=== PATIENT | female | born 1975 | race Caucasian/White ===

== ENCOUNTER 2018-09-14 22:14 | Inpatient (IN) | payer OTHER ==
[~2018-09-14] VITALS: Ht 162.6 cm; Wt 68.5 kg
[2018-09-14 22:18] VITALS: Ht 162.6 cm; Wt 68.5 kg
[2018-09-14 22:44] LABS: BASOPHIL % 0.1 % (0-2); PLATELET COUNT 200 x10^3mcL (130-400); RED CELL DISTRIBUTION WIDTH 13.8 % (11.5-14.5)
[2018-09-14 23:04] LABS: CARBON DIOXIDE 22.6 mmol/L (21-32); CHLORIDE SERUM 105 mmol/L (98-107); CREATININE SERUM 0.5 mg/dL (0.6-1.0); GFR1 > 60 mL/min; GLUCOSE SERUM 118 mg/dL (74-106); POTASSIUM SERUM 3.7 mmol/L (3.5-5.1); SODIUM SERUM 139 mmol/L (136-145)
[2018-09-14 23:09] LABS: ALBUMIN 3.5 g/dL (3.4-5.0); ALKALINE PHOSPHATASE 168 U/L (46-116); ALT/SGPT 66 U/L (14-59); AST/SGOT 34 U/L (15-37); BILIRUBIN TOTAL 0.46 mg/dL (0.20-1.00); LIPASE 112 IU/L (73-393); TOTAL PROTEIN, SERUM 7.5 g/dL (6.4-8.2)
--- NOTE | 2018-09-14 23:33 | NUR ---
PT PRESENTS TO ER TODAY WITH C/O OF GENERALIZED ABD PAIN THAT STARTED THIS MORNING AT APPROX 0300. PT STATES THAT PAIN FEELS SHARP AND RATES IT A 10/10. PT ALSO REPORTING NAUSEA AND VOMITING X4 TODAY. PT DENIES ANY DIARRHEA OR FEVER. PT REPORTS GOING TO URGENT CARE TODAY AND WAS PRESCRIBED CIRPOFLOXACIN THAT SHE TOOK ONE DOSE OF TODAY. PT REPORTS PAIN WAS NOT GETTING ANY BETTER AND DECIDED TO COME TO ER TODAY FOR FURTHER EVALUATION. PT ALSO REPORTING OLIGURAI BUT DENIES ANY DYSURIA OR HEMATURIA. PT IS A/O X4. RESP ARE EQUAL AND UNLABORED. MILD DISTRESS NOTED. MOTHER AT BEDSIDE.
--- NOTE | 2018-09-15 01:50 | NUR ---
PT RESTING IN BED RUBBING HER ABD COMPLAINING OF 7/10 PAIN IN HER ABDOMEN. PT STATES TACHY AT 121 AND HYPERTENSIVE AT 171/71. MILD DISTRESS NOTED. MD HILL MADE AWARE.
--- NOTE | 2018-09-15 02:19 | NUR ---
REPORT GIVEN TO SENTHIL MORIN TO ASSUME CARE OF PT.
[2018-09-15 02:42] LABS: CHOLESTEROL/HDL RATIO 1.9
[2018-09-15 02:52] LABS: T3 TOTAL > 8.00 ng/mL
[2018-09-15 03:33] LABS: FREE T4 10.74 ng/dL (0.76-1.46); FREE THYROXINE INDEX 19.8 ug/dL (1.4-4.5); T4(THYROXINE) 34.2 ug/dL (4.7-13.3)
[2018-09-15 03:42] VITALS: BP 190/94
--- NOTE | 2018-09-15 03:56 | NUR ---
PATIENT ADMITTED TO UNIT VIA WHEELCHAIR ACCOMPANIED BY MOTHER. PATIENT ADMITTED FOR ABDOMINAL PAIN RADIATING TO LOWER BACK DESCRIBED CRAMPING AND BLOATING STARTED TODAY. HYPOACTIVE BOWEL SOUNDS X4. ABDOMEN SOFT AND ROUND. PATIENT STATED THAT SHE HAD A X1 WATERY LOOSE STOOL YESTERDAY. IV TO LAC, CONNECTED TO IV FLUIDS PER MD ORDERS AND REORIENTED TO ENVIRONMENT. CALL LIGHT PLACED IN REACH.
[2018-09-15 06:15] VITALS: BP 159/79
[2018-09-15 06:29] LABS: BASOPHIL % 0.2 % (0-2); PLATELET COUNT 178 x10^3mcL (130-400); RED CELL DISTRIBUTION WIDTH 13.9 % (11.5-14.5)
[2018-09-15 06:41] LABS: CALCIUM 8.6 mg/dL (8.5-10.1); CARBON DIOXIDE 22.9 mmol/L (21-32); CHLORIDE SERUM 104 mmol/L (98-107); CREATININE SERUM 0.4 mg/dL (0.6-1.0); GFR1 > 60 mL/min; GLUCOSE SERUM 92 mg/dL (74-106); MAGNESIUM 1.5 mg/dL (1.8-2.4); PHOSPHOROUS 3.8 mg/dL (2.5-4.9); POTASSIUM SERUM 3.8 mmol/L (3.5-5.1); SODIUM SERUM 139 mmol/L (136-145)
--- NOTE | 2018-09-15 07:30 | NUR ---
PT IS AAOX4. NORMAL S1S2 NOTED. RESP EVEN AND UNLABORED. ON R/A. ABDOMEN SOFT, TENDER, NONDISTENDED. BOWEL SOUNDS ACTIVE. SKIN CDI. NO EDEMA NOTED. IV CATH TO LFA PATENT WITH NO S/S OF INFECTION NOTED. DENIES PAIN AT THIS TIME. CALL LIGHT WITHIN REACH. BED IN LOWEST POSTION.
[2018-09-15 09:00] VITALS: BP 130/61
--- NOTE | 2018-09-15 09:40 | NUR ---
DUE MEDS GIVEN. PT DENIES ABDOMINAL PAIN AT THIS TIME. RESP EVEN AND UNLABORED. NO DISTRESS NOTED. PT'S MOTHER AT BEDSIDE. PT INFORMED DIET HAS BEEN CHANGE TO FULL LIQUID AND WILL CX TO NPO AFTER MIDNIGHT. PT VERBALIZED UNDERSTANDING. CALL LIGHT WITHIN REACH.
--- NOTE | 2018-09-15 10:51 | NUR ---
REPORTED TO DR. MENDES, PT'S MAG LEVEL IS 1.5. NO NEW ORDERS AT THIS TIME.
--- NOTE | 2018-09-15 13:45 | NUR ---
NORCO PO GIVEN FOR ABDOMINAL PAIN. PT TURNED AND REPOSITIONED FOR COMFORT. FLUIDS ENCOURAGED. CALL LIGHT WITHIN REACH.
[2018-09-15 14:50] LABS: UA SPECIFIC GRAVITY >=1.030 (1.005-1.035); microscopic required? YES; urine erythrocyte 1+ (NEGATIVE)
[2018-09-15 15:11] LABS: AMPHETAMINE QUAL UR NONE DETECTED (See below)
[2018-09-15 17:00] VITALS: BP 148/77
--- NOTE | 2018-09-15 18:59 | NUR ---
PT IS AAOX4. RESP EVEN AND UNLABORED. DENIES PAIN OR DISCOMFORT. IV CATH TO LFA PATENT WITH NO S/S OF INFECTION NOTED. CALL LIGHT WITHIN REACH. BED IN LOW POSITION. WILL ENDORSE ALL CARE TO NOC RN.
--- NOTE | 2018-09-15 20:20 | NUR ---
PT RECIEVED AAO REG RESP NO SOB V/S STABLE,KEPT CLEAN AND DRY TO TOUCH,PT HAS HL TO THE LT AC SITE SWOLLEN WILL STAY A NEW HL.REG RESP NO SOB V/S STABLE.KEPT CLEAN AND DRY TO TOUCH,PT WITH C/O OF ABDO PAIN DRAMPING IN NATURE AT THE SCALE OF 5/10,PT HAD A EPISODE OF VOMITING MODERATE YELLOW PER PATIENT,BED IN THE LOW POSITION AND LOCKED AND WILL CONTINUE TO MONITOR.
[2018-09-15 22:16] VITALS: BP 142/75
--- NOTE | 2018-09-16 01:55 | NUR ---
PT SLEEPING SOUNDLY AND WILL CONTINUE TO MONITOR.
[2018-09-16 05:41] VITALS: BP 130/64
[2018-09-16 06:16] LABS: BASOPHIL % 0.2 % (0-2); PLATELET COUNT 163 x10^3mcL (130-400); RED CELL DISTRIBUTION WIDTH 14.3 % (11.5-14.5)
[2018-09-16 06:35] LABS: CALCIUM 8.6 mg/dL (8.5-10.1); CARBON DIOXIDE 23.5 mmol/L (21-32); CHLORIDE SERUM 106 mmol/L (98-107); CREATININE SERUM 0.3 mg/dL (0.6-1.0); GFR1 > 60 mL/min; GLUCOSE SERUM 105 mg/dL (74-106); MAGNESIUM 1.6 mg/dL (1.8-2.4); PHOSPHOROUS 3.3 mg/dL (2.5-4.9); POTASSIUM SERUM 3.5 mmol/L (3.5-5.1); SODIUM SERUM 141 mmol/L (136-145)
--- NOTE | 2018-09-16 06:42 | NUR ---
PT HAD A RESTING NIGHT NO CHANGE AT THIS TIME,WILL CONTINUE TO MONITOR.
--- NOTE | 2018-09-16 07:40 | NUR ---
PT IS AAOX4. DENIES H/A OR DIZZINESS. RESP EVEN AND UNLABORED. LUNG SOUNDS CTA. ON R/A. NORMAL S1S2 NOTED. ABDOMEN SOFT, TENDER, NONDISTENDED. BOWEL SOUNDS ACTIVE. PT HAS MILD ABDOMINAL PAIN BUT WOULD LIKE TO WAIT A WHILE BEFORE TAKING PAIN MEDICATION. SKIN CDI. PERIPHERAL PULSES PALPABLE. NO EDEMA NOTED. IV CATH 20G TO LFA PATENT WITH NO S/S OF INFECTION OR INFILTRATION. BED IN LOWEST POSITION. CALL LIGHT WITHIN REACH.
--- NOTE | 2018-09-16 10:30 | NUR ---
DR. ALBERTO AND MEDICAL TEAM MET WITH PT AND DISCUSSED POC. DETAILS OF THE SURGERY WERE REVIEWED. DR. MENDES ACKNOWLEDGED PT REFUSAL FOR BLOOD PRODUCTS AND BLOOD.
[2018-09-16 10:45] VITALS: BP 141/74
--- NOTE | 2018-09-16 11:36 | NUR ---
TYLENOL 650MG PO GIVEN FOR TEMP 100.5F. COOING MEASURES IMPLEMENTED. FAMILY AND FRIENDS AT BEDSIDE. CALL LIGHT WITHIN REACH.
--- NOTE | 2018-09-16 13:24 | NUR ---
MORPHINE 4MG IVP GIVEN FOR THROBBING HEADACHE AND ABDOMINAL PAIN 01/29. DUE MED GIVEN. PT TURNED AND REPOSITIONED FOR COMFORT. PT TEMP HAS DECREASED 99.5F. COOLING MEASURES STILL IN PLACE. PT'S FAMILY AT BEDSIDE. CALL LIGHT WITHIN REACH. WILL CONTINUE TO MONITOR.
--- NOTE | 2018-09-16 15:20 | NUR ---
PT IV CATH TO RAC OCCLUDED, REMOVED INTACT. SITE WNL, COVERED WITH GAUZE AND BANDAID. NEW IV CATH 20G STARTED TO RFA. SITE WNL COVERED WITH CDI DRESSING. PT TOLERATED PROCEDURE WELL. CALL LIGHT WITHIN REACH.
--- NOTE | 2018-09-16 16:57 | NUR ---
PT N/S LOCKED AND TAKEN DOWN FOR LAP JOHN PAUL.
--- NOTE | 2018-09-16 18:34 | NUR ---
PT AT PROCEDURE. WILL ENDORSE ALL CARE TO ONCOMING NOC RN.
--- NOTE | 2018-09-16 19:48 | NUR ---
KATHY RECIEVED FROM OR VIA BED AND WAS ACCOMPANIED BY THE FAMILY,PT MADE COMFORTABLE IN BED,V/S STABLE,PT ASKING FOR WATER WAS GIVEN ORDER AND DRESSING ,ADBO IS SOFT WITH FOUR SURGICAL SITE WITH THREE OF THEM WITH DERMABOUND,ACTIVE BOWEL SOUNDS,IV INFUSING WELL WITH THE SITE PATENT AND INTACT,KEPT CLEAN AND DRY TO TOUCH WITH CALL LIGHT EASY REACHED AND WILL CONTINUE TO MONITOR.
[2018-09-16 20:00] VITALS: BP 135/75
--- NOTE | 2018-09-16 21:40 | NUR ---
PT WAS GET OOB ABULATING AND BEING ACCOMPANIED BY THE MOTHER,PT WITH C/O OF SURGICAL PAIN TO THE ABDO ARCHING IN NATURE AT THE SCALE OF 5/10,WILL MEDICATED FOR THAT,WILL CONTINUE TO MONITOR.
[2018-09-16 21:49] VITALS: BP 116/57
--- NOTE | 2018-09-16 21:52 | NUR ---
PT WAS MEDICATED WITH MORHINE 4 MG IV ORDER AND WILL CONTINUE TO MONITOR.
--- NOTE | 2018-09-16 23:33 | NUR ---
pt sleeping at this time,will continue to monitor.
--- NOTE | 2018-09-17 05:46 | NUR ---
PT WAS HELP TO THE BATHROOM AND BURPING AND NOT PASSING GAS,HOB,KEPT CLEAN AND DRY TO TOUCH,CALL LIGHT EASY REACHED AND SURGICAL SITE PATENT AND INTACT.
--- NOTE | 2018-09-17 06:22 | NUR ---
PT HAD A RESTING NIGHT NO CHANGE AT THIS TIME,WILL CONTINUE TO MONITOR.
[2018-09-17 06:43] LABS: CALCIUM 8.5 mg/dL (8.5-10.1); CARBON DIOXIDE 25.9 mmol/L (21-32); CHLORIDE SERUM 104 mmol/L (98-107); CREATININE SERUM 0.5 mg/dL (0.6-1.0); GFR1 > 60 mL/min; GLUCOSE SERUM 154 mg/dL (74-106); MAGNESIUM 1.6 mg/dL (1.8-2.4); PHOSPHOROUS 3.4 mg/dL (2.5-4.9); POTASSIUM SERUM 3.2 mmol/L (3.5-5.1); SODIUM SERUM 138 mmol/L (136-145)
[2018-09-17 06:59] VITALS: BP 120/64
[2018-09-17 07:47] LABS: BASOPHIL % 0.1 % (0-2); PLATELET COUNT 182 x10^3mcL (130-400)
--- NOTE | 2018-09-17 07:54 | NUR ---
PT RESTING AT THIS TIME,ABDO IS SOFT ACTIVE BOWEL SOUNDS AND WITH FOUR INCISION SUTURES AND DERMABOUND,SITE IS PATENT AND INTACT,IV INFUSING WELL WITH THE SITE PATENT AND INTACT,PT IS BURPING AND BEING ENCOURAGE TO ABULATE AND DOING THAT,PT RESTING AT THIS TIME AND WILL CONTINUE TO MONITOR.
[2018-09-17 09:49] VITALS: BP 121/58
--- NOTE | 2018-09-17 11:30 | NUR ---
ASSUMED CARE OF THE PATIENT. PT AWAKE, ALERT A/OX4. PT WANTS TO ATTEMPT TO STAND BUT UNABLE TO DUE TO SHARP PAIN. PREVIOUS NURSE GAVE MORPHINE AT 1100. ONE TIME DOSE OF DILAUDID ORDERED. WILL GIVE AROUND 1230 TO SPACE OUT NARCOTICS. PT IN AGREEMENT WITH PLAN, WILL TRY TO WALK WHEN DOSE OF DILAUDID IS ADMINISTERED. SAFETY MEASURES IN PLACE. CALL LIGHT WITHIN REACH. FAMILY AT BEDSIDE.
--- NOTE | 2018-09-17 12:43 | NUR ---
ONE TIME DOSE OF DILAUDID 1 MG IV ADMINISTERED ORDERED. EDUCATION PROVIDED TO PT REGARDING ACTIVITY, PAIN AND MEDICATIONS. PT VERBALIZED UNDERSTANDING. PT ABDOMEN DISTENDED. PT ENCOURAGED TO AMBULATE. PT WILL CALL WHEN SHE IS READY TO AMBULATE.
--- NOTE | 2018-09-17 13:09 | NUR ---
DR PEMBERTON AWARE OF PT PAIN, ABD DISTENTION. NEW ORDER FOR LABS STAT. OK TO ENCOURAGE AMBULATION PER . BUT PT UNABLE TO GET UP AT THIS TIME DUE TO SHARP ABDOMINAL PAIN. WILL ATTEMPT TO AMBULATE AT A LATER TIME.
[2018-09-17 13:17] LABS: ALBUMIN 2.6 g/dL (3.4-5.0); BILIRUBIN DIRECT 0.21 mg/dL (0.0-0.2); BILIRUBIN TOTAL 0.54 mg/dL (0.20-1.00); TOTAL PROTEIN, SERUM 5.9 g/dL (6.4-8.2)
--- NOTE | 2018-09-17 13:42 | NUR ---
ATTEMPTED TO CALL DR PEMBERTON WITH RESULTS OF HEPATIC FUNCTION TEST STAT. NO ANSWER. LEFT MESSAGE WITH OFFICE FOR CALL BACK. WILL ATTEMPT AGAIN.
--- NOTE | 2018-09-17 14:10 | NUR ---
PATIENT C/O ABD PAIN 5/10, MEDICATED WITH NORCO PO (SEE eMAR). ALL NEEDS ATTENDED TO. SAFETY PRECAUTIONS MAINTAINED.
--- NOTE | 2018-09-17 15:20 | NUR ---
SPOKE WTIH DR MENDES REGARDING ABDOMINAL DISTENTION AND RELUCTANCY TO AMBULATE. NEW ORDERS TO BE GIVEN.
--- NOTE | 2018-09-17 15:42 | NUR ---
DR MENDES AWARE MAG 1.6 AND POTASSIUM 3.2
--- NOTE | 2018-09-17 15:56 | NUR ---
CALLED DR PEMBERTON REGARDING PT LIVER FUNCTION RESULTS. PER DR BEE OK TO ADVANCE DIET TOLERATED. FOLLOW UP WITH HIM IN 2 WEEKS AND CLEAR TO DISCHARGE WHEN PRIMARY DOCTOR DECIDES. WILL LET DR. MENDES KNOW.
[2018-09-17 17:23] VITALS: BP 121/58
--- NOTE | 2018-09-17 17:43 | NUR ---
PT COMPLAINING OF PAIN 11/29. REQUESTING PAIN MEDICATION. NORCO ADMINISTERED ORDERED PRN (SEE EMAR). WILL MONITOR.
--- NOTE | 2018-09-17 18:38 | NUR ---
PT REPORTS PAIN STILL THERE AFTER ADMINISTRATION OF NORCO. PT TEMP 100.0, COOLING MEASURES APPLIED X 2. REDNESS AND TENDERNESS NOTED TO ABDOMEN. DR PEMBERTON AWARE OF ABDOMEN TENDERNESS WHEN HE ASSESSED PT EARLIER IN THE DAY. PT NEEDS MET THROUGHOUT THE DAY. WILL CONTINUE TO MONITOR AND ENDORSE CARE TO THE INSURANCE CLAIMS REPRESENTATIVE NURSE.
--- NOTE | 2018-09-17 19:02 | NUR ---
PT COMPLAINING OF PAIN 7/10 IN ABDOMEN. MORPHINE ADMINISTERED IVP ORDERED PRN (SEE EMAR) WILL CONTINUE TO MONITOR AND ENDORSE TO TRANSACTION ADVISORY SERVICES MANAGER.
--- NOTE | 2018-09-17 19:35 | NUR ---
PT IV IN LEFT ARM INFILTRATED. IV REMOVED WITH CATHETER INTACT. NEW IV STARTED IN LEFT HAND 24 G. PT TOLERATED WELL. COLD PACK APPLIED TO LEFT ARM
--- NOTE | 2018-09-17 19:37 | NUR ---
RECEIVED PATIENT IN BED AWAKE,ALERT AND ORIENTED WITH NO C/O POST OPERATIVE PAIN THIS TIME, PATIENT MEDICATED EARLIER FOR PAIN MEDS BY AM SHIFT. INCISION X4 WITH DERMABOND INTACT WITH NO BLEEDING NOTED. BELLY BUTTON WITH REDNESS AND PAIN PER PATIENT. IV TO RFA SWOLLEN AND AM SHIFT REINSERTED TO LH INTACT AND INFUSING WELL. WILL CONTINUE TO MONITOR. CALL LIGHT WITHIN REACH.
--- NOTE | 2018-09-17 22:02 | NUR ---
C/O POST OPERATIVE PAIN MEDICATED WITH MORPHINE 4MG IVP PRESCRIBED. WILL CONTINUE TO MONITOR.
[2018-09-17 22:29] VITALS: BP 141/68
--- NOTE | 2018-09-17 23:34 | NUR ---
STILL C/O PAIN, NORCO 1 TAB PO GIVEN PRESCRIBED. WILL CONTINUE TO MONITOR.
--- NOTE | 2018-09-18 00:51 | NUR ---
PT C/O CRAMPING ABD PAIN 01/29; GIVEN MORPHINE 4MG IVP; DARKENED ROOM, REPOSITIONED PT FOR COMFORT. WILL ENDORSE TO MIKEL BAINS.
--- NOTE | 2018-09-18 03:05 | NUR ---
APPEARS SLEEPING THIS TIME, BREATHING EASYA ND NONLABOR. WILL CONTINUE TO MONITOR.
--- NOTE | 2018-09-18 04:01 | NUR ---
AWAKE C/O POST OPERATIVE PAIN MORPHINE 2MG IV GIVEN PRESCRIBED.
--- NOTE | 2018-09-18 05:09 | NUR ---
AWAKE MOST OF THE TIME C/O POST OPERATIVE PAIN X4 THE ENTIRE SHIFT. REFUSED TO AMBULATE AND REFUSED TO GO BATHROOM, PATIENT VOIDING ON BED DESPITE ON EXPLANATION THAT SHE HAS TO AMBULATE. ALL NEEDS ATTENDED.
[2018-09-18 06:15] LABS: CALCIUM 8.5 mg/dL (8.5-10.1); CARBON DIOXIDE 28.2 mmol/L (21-32); CHLORIDE SERUM 105 mmol/L (98-107); CREATININE SERUM 0.4 mg/dL (0.6-1.0); GFR1 > 60 mL/min; GLUCOSE SERUM 132 mg/dL (74-106); MAGNESIUM 1.6 mg/dL (1.8-2.4); PHOSPHOROUS 4.1 mg/dL (2.5-4.9); POTASSIUM SERUM 3.9 mmol/L (3.5-5.1); SODIUM SERUM 139 mmol/L (136-145)
[2018-09-18 06:22] VITALS: BP 123/60
--- NOTE | 2018-09-18 07:25 | NUR ---
RECEIVED PT. IN BED A/A/O X3. NO SOB, NO N/V NOTED. PT. C/O ON AND OFF ABD. PAIN. D51/2NS RUNNING AT 100 CC/HR VIA IV SITE AT L HAND. BED IN LOW POS., CALL LIGHT WITHIN REACH. SIDE RAILS UP X3.
[2018-09-18 09:01] VITALS: BP 115/64
--- NOTE | 2018-09-18 11:00 | NUR ---
NEW IV SITE RESTARTED AT L FA WITH GAUGE #22 DUE TO LEAKING OF OLD IV SITE.
[2018-09-18 12:12] LABS: BASOPHIL % 0.3 % (0-2); PLATELET COUNT 186 x10^3mcL (130-400); RED CELL DISTRIBUTION WIDTH 14.2 % (11.5-14.5)
--- NOTE | 2018-09-18 16:49 | NUR ---
REMAINS IN STABLE CONDITION AT THIS TIME. PT. AMBULATED IN HALLWAY X3 DURING SHIFT. WILL CONTINUE TO MONITOR. PT. STATED SHE HAS PASSED GAS TODAY.
[2018-09-18 18:03] VITALS: BP 105/57
--- NOTE | 2018-09-18 19:18 | NUR ---
RECEIVED PT FROM DAY SHIFT RN. PT IS RESTING IN BED AA&O X 4 AND ABLE TO FOLLOW COMMANDS. PT HAS A LFA IV ACCESS THAT IS CLEAN DRY AND INTACT AT THIS TIME. PT DENIES ANY CHEST PAIN OR SHORTNESS OF BREATH AT THIS TIME ON ROOM AIR. PT CURRENTLY COMPLAINING OF ABDOMINAL PAIN. ABDOMINAL INCISIONS ASSESSED AND NO PURULENT DRAINAGE OR ODOR AT THIS TIME. WILL MEDICATE PER ORDER. PT STATED THAT SHE HAS PASSED GAS AND HAD A SMALL BOWEL MOVEMENT. SAFETY MEASURES ARE IN PLACE. CALL LIGHT IS WITHIN REACH. WILL CONTINUE TO MONITOR.
--- NOTE | 2018-09-18 20:22 | NUR ---
TORADOL GIVEN FOR PAIN 8/10 IN ABDOMINAL INCISION AREA. WILL REASSESS.
[2018-09-18 22:29] VITALS: BP 109/57
--- NOTE | 2018-09-19 00:07 | NUR ---
PT C/O ABD CRAMPING PAIN. MEDICATED WITH NORCO.
--- NOTE | 2018-09-19 02:29 | NUR ---
C/O ABD CRAMPING PAIN. MEDICATED WITH TORADOL.
[2018-09-19 05:32] VITALS: BP 132/65
--- NOTE | 2018-09-19 06:36 | NUR ---
PT SLEPT IN SHORT INTERVALS THROUGHOUT THE NIGHT. PT HAD STATED THAT SHE PASSED GAS AND HAS HAD A BOWEL MOVEMENT THROUGHOUT THE NIGHT. PT ALSO STATES THAT SGE IS ABLE TO BURP. SAFETY MEASURES ARE IN PLACE. CALL LIGHT IS WITHIN REACH. WILL ENDORSE TO DAY SHIFT RN.
[2018-09-19 06:57] LABS: CALCIUM 8.5 mg/dL (8.5-10.1); CARBON DIOXIDE 26.5 mmol/L (21-32); CHLORIDE SERUM 104 mmol/L (98-107); CREATININE SERUM 0.3 mg/dL (0.6-1.0); GFR1 > 60 mL/min; GLUCOSE SERUM 109 mg/dL (74-106); POTASSIUM SERUM 3.2 mmol/L (3.5-5.1); SODIUM SERUM 140 mmol/L (136-145)
[2018-09-19 07:12] LABS: BASOPHIL % 0.3 % (0-2); PLATELET COUNT 184 x10^3mcL (130-400)
--- NOTE | 2018-09-19 07:20 | NUR ---
RECEIVED PT. IN BED A/A/O X4. NO SOB, NO N/V NOTED. PT. STILL C/O ON AND OFF ABD. PAIN. D51/2NS RUNNING AT 100 CC/HR VIA IV SITE AT L FA. BED IN LOW POS., CALL LIGHT WITHIN REACH. SIDE RAILS UP X3. PT. STATED SHE IS PASSING GAS.
[2018-09-19 10:07] VITALS: BP 120/54
--- NOTE | 2018-09-19 11:48 | NUR ---
PATIENT C/O ABD PAIN 11/29, MEDICATED WITH NORCO PO (SEE eMAR). ALL NEEDS ATTENDED TO. SAFETY PRECAUTIONS MAINTAINED. WILL NOTIFY PRIMARY RN.
--- NOTE | 2018-09-19 12:34 | NUR ---
Intervention/RDN Recommendation(s): 1. Continue on full liquid diet and advance to regular diet as tolerated.
--- NOTE | 2018-09-19 12:34 | NUR ---
Initial Nutrition Assessment- Dx: intractable pain, gallstones, diverticulitis, abdominal pain, N/V PMHx: none PSHx: phlebectomy 2 years ago Labs: (09/19) Na 140, K 3.2, Glu 109 H, BUN 12, Cr 0.3 L, H/H 9.03/21 Meds: Colace, dilaudid, flagyl, klor-con, levaquin, mag-ox, magnesium sulfate, morphine sulfate, norco, Tylenol, zofran Diet: FL (breakfast) PO Intakes: (09/18) D: full liquid, 60%; L: full liquid, 20%; (09/17) B: clear liquid, 100%; (09/16) B: NPO, L: NPO Ht: 162.56 cm/64 inches/5'4" Wt: 68.492 kg (151#) BMI: 25.9 kg/m2, normal for age IBW: 130# (59 kg) %IBW: UBW: 144# Age: 43 Food Allergies: No Known Food Allergies Skin: WNL Jeremias 23 Edema: None noted GI: Last BM 09/19 x 1 Pt admitted with dx: sepsis likely 2/2 cholecystitis with cholelithiasis, vasomotor nephropathy, HTN, rt ovarian cyst, DVT prophylaxis. Per physician progress notes (09/17 and 09/18), Pt is s/p lap qasim. Pt reports having a lot of gas, Pt was informed that getting up and walking with help relieve gas. RDN visited with Pt. Pt reports appetite is improving, only had half a sandwich. Pt denies questions/concerns for RDN at this time. Problem with: N: no V: no D: no C: no Problems with: Chewing: no Swallowing: no Current appetite: fair, improving Recent wt changes: none Vitamin/Supplement: MVI, vit B12 Special Diet at Home: regular/high protein Physical activity: wt training Education: declined Estimated Nutritional Needs Based on actual body weight of 68 kg. Energy: 8464-6340 kcal/d (25-30 kcal/kg for adult maintenance) Protein: 54-68 gm/d (0.8-1 gm/kg for adult maintenance) Fluid: 3513-1232 mL/d (1 mL/kcal) or per MD. Nutrition Diagnosis 1. Inadequate protein/energy intakes related to inadequate oral intakes as evidenced by variable intakes between 20-100% on clear and full liquid diets. Intervention/RDN Recommendation(s): 1. Continue on full liquid diet and advance to regular diet as tolerated. Monitor/Evaluate Goal: Intake via PO intakes to meet at least 75% of estimated needs with acceptable tolerance within 3-5 days. Monitor: PO intakes and/or nutrition support tolerance, Labs, GI function, Skin integrity, Weights. F/U in 3-5 days as moderate risk (09/22-)
--- NOTE | 2018-09-19 16:00 | NUR ---
PT. STATED SHE WANTED TO LEAVE A.M.A. PT. EXPLAINED THAT HER PAIN LEVEL IS GOING DOWN. PT. SAID " I'M NOT HAVING SO MUCH PAIN TODAY. THERE IS NO NEED FOR ME TO STAY." THE NURSE PRACTITIONER CYDNEY HUTTON.
--- NOTE | 2018-09-19 16:17 | NUR ---
ADAL LAMAS RETURNED PHONE CALL. CYDNEY EXPLAINED THAT NO NARCOTIC PRESCRIPTIONS WILL BE GIVEN TO PT. IF PT. LEAVES A.M.A.
--- NOTE | 2018-09-19 16:35 | NUR ---
EXPLAINED TO PT. THE RISKS OF LEAVING A.M.A. AND THAT NO NARCOTIC PRESCRIPTIONS WILL BE GIVEN PER BLOW DOWN HELPER CYDNEY IF PT. DECIDED TO LEAVE A.M.A. PT. STATED " I'M NOT GOING TO LEAVE IF I DON'T HAVE PRESCRIPTION FOR MY PAIN MEDS. I'LL STAY ONE MORE NIGHT THEN."
[2018-09-19 18:14] VITALS: BP 124/62
--- NOTE | 2018-09-19 18:30 | NUR ---
NEW IV SITE RESTARTED AT L HAND WITH GAUGE #22 DUE TO INFILTRATION OF OLD IV SITE.
--- NOTE | 2018-09-19 19:35 | NUR ---
RECEIVED PATIENT SITTING IN A CHAIR WITH NO C/O POST OPERATIVE PAIN AT THIS TIME. IV TO LEFT HAND INTACT AND INFUSING WELL. SURGICAL INCISION X4 TO ABDOMEN WITH DERMABOND CDI, NO BLOOD TRACED NOTED. WILL CONTINUE TO MONITOR. CALL LIGHT WITHIN REACH.
--- NOTE | 2018-09-19 19:39 | NUR ---
PT. AMBULATED IN HALLWAY X2 DURING SHIFT TODAY.
[2018-09-19 20:58] VITALS: BP 112/59
--- NOTE | 2018-09-19 20:58 | NUR ---
C/O POST OPERATIVE PAIN NORCO 1 TAB PO GIVEN PRESCRIBED. WILL CONTINUE TO MONITOR.
--- NOTE | 2018-09-20 01:36 | NUR ---
APPEARS SLEEPING THIS TIME AFTER PAIN MEDS WAS GIVEN. WILL CONTINUE TO MONITOR.
--- NOTE | 2018-09-20 03:30 | NUR ---
AWAKE C/O POST OPERATIVE PAIN TORADOL 15 MG IVP GIVEN PRESCRIBED.
--- NOTE | 2018-09-20 05:12 | NUR ---
SLEPT FAIRLY C/O POST OP PAIN X2 THE ENTIRE SHIFT. ALL NEEDS ATTENDED.
[2018-09-20 06:07] VITALS: BP 110/48
[2018-09-20 06:56] LABS: BASOPHIL % 0.4 % (0-2); PLATELET COUNT 191 x10^3mcL (130-400); RED CELL DISTRIBUTION WIDTH 14.2 % (11.5-14.5)
[2018-09-20 07:05] LABS: CALCIUM 8.7 mg/dL (8.5-10.1); CARBON DIOXIDE 26.1 mmol/L (21-32); CHLORIDE SERUM 106 mmol/L (98-107); CREATININE SERUM 0.3 mg/dL (0.6-1.0); GFR1 > 60 mL/min; GLUCOSE SERUM 114 mg/dL (74-106); POTASSIUM SERUM 4.1 mmol/L (3.5-5.1); SODIUM SERUM 138 mmol/L (136-145)
--- NOTE | 2018-09-20 07:30 | NUR ---
RECEIVED PT FROM METAL WASHING MACHINE OPERATOR RN. Viet/MAGGIE. MED SURG. RESPIRATIONS EQUAL AND UNLABORED ON 2L NC. NO ACUTE RESP DISTRESS NOTED. IV PATENT AND INFUSING. NO REDNESS OR SWELLING NOTED. PT ASKING FOR DISCHARGED. INFORMED PT WE WILL KNOW MORE ONCE SHE IS SEEN BY FINISH REMOVER. PT VERBALIZED UNDERSTANDING. ENCOURAGED PT TO AMBULATE MUCH TOLERATED. WILL CONTINUE TO MONITOR. CALL LIGHT IN REACH. BED IN LOWEST POSITION.
[2018-09-20 09:02] VITALS: BP 115/55
--- NOTE | 2018-09-20 09:02 | NUR ---
PT SITTING UP IN BED. PT C/O PAIN 09/29 TO OPERATIVE SITE. PT REQUESTING FOR TYLENOL WITH JAMILA LAMAS NP PT CAN HAVE MOTRIN OR TYLENOL. PT REQUESTING TO HAVE TYLENOL. GIVEN TYLENOL PO. TOLERATED WELL. PT ENCOURAGED TO WALK AROUND TO HELP MANAGE PAIN. PT VERBALIZED UNDERSTANDING. PT STATES "I WILL GET UP AND WALK WHEN MY MOM GETS HERE" WILL CONTINUE TO MONITOR. CALL LIGHT IN REACH.
[2018-09-20] MEDS ORDERED: LEVAQUIN750 MG PO (09:54)
[2018-09-20] MEDS ORDERED: FLA500 PO (09:56)
[2018-09-20] MEDS ORDERED: IBUPROFEN400 MG PO (09:58)
--- NOTE | 2018-09-20 10:41 | NUR ---
PT SITTING UP IN CHAIR AT BEDSIDE. GIVEN PO MEDS. TOLERATED WELL. PT REFUSING TO HAVE IV FLUIDS. DISCONNECTED PT PER PT REQUEST. PT ASKING FOR DISCHARGE PT INSTRUCTED. WILL GET DISCHARGE DONE AND GIVE TO PT. WILL CONTINUE TO MONITOR. CALL LIGHT IN REACH. BED IN LOWEST POSITION.
[2018-09-20 10:54] VITALS: BP 115/55
--- NOTE | 2018-09-20 11:43 | NUR ---
PGerald NOTES AFTER MULTIPLE ATTEMPTS PATIETN REFUSED TO BE SEEN BY PBeauT., STATES GOING TO BE LEAVING SOON, NURSING MADE AWARE.
--- NOTE | 2018-09-20 11:53 | NUR ---
PT GIVEN DISCHARGE INSTRUCTIONS WITH FAMILY AT BEDSIDE. PT INSTRUCTED TO MAKE A FOLLOW UP APPOINTMENT WITH PCP. PT INSTRUCTED TO MONITOR ABDOMEN FOR ANY DRAINAGE, SWELLING, OR REDNESS. PT INSTRUCTED TO COME INTO ER OR CALL PCP IF ANY WORSENING SYMPTOMS PERSIST. PHOTOGRAPH TAKEN OF OPERATIVE SITE. PT GIVEN PRESCRIPTIONS ANTIBIOTICS FLAGYL, LEVAQUIN AND IBUPROFEN. PT INSTRUCTED TO TAKE TO [facility]. ALL QUESTIONS AND CONCERNS ADDRESSED. IV TO LH REMOVED CATHETER INTACT. NO REDNESS OR SWELLING NOTED. PT GETTING DRESSED. WILL BE TAKEN DOWN BY PROFESSOR OF HISTORICAL THEOLOGY VIA WHEELCHAIR.
== END 2018-09-20 12:03 | disposition home or self-care (01) | DRG 853 ==
LOC: ED 22:14 → MU 09-15 02:05
PROVIDERS: Emergency Medicine; General Practice; Surgery; ADMIT Internal Medicine
PROC: 0FT44ZZ Resection of Gallbladder, Percutaneous Endoscopic Approach (ICD-10-PCS; principal; 2018-09-16 14:00)
DX: A41.9 Sepsis, unspecified organism (principal); N17.0 Acute kidney failure with tubular necrosis; K80.00 Calculus of gallbladder with acute cholecystitis without obstruction; N83.201 Unspecified ovarian cyst, right side; I10 Essential (primary) hypertension; Z68.25 Body mass index [BMI] 25.0-25.9, adult; Z88.0 Allergy status to penicillin
CPT/HCPCS: 84439; 97110-GP; 97116-GP; 97530-GP; J0330; J1170; J1885; J1956; J2175; J2250; J2270; J2405; J2704; J2710; J3010; J3475; J3490; J7030; J7120; Q0092